=== PATIENT | male | born 1960 | race Caucasian/White ===

== ENCOUNTER 2019-11-25 14:44 | Emergency (ER) | payer OTHER, SELFPAY ==
--- NOTE | ~2019-11-25 | XR_ITS ---
EXAMINATION: XR chest 2V EXAM DATE: 11/25/2019 15:28 INDICATION: Left upper lung diminished sounds. TECHNIQUE: Frontal and lateral projections of the chest obtained and reviewed. There is no prior chris dy for comparison. FINDINGS: Moderate chronic appearing hyperinflation. Metallic BB within the left back subcutaneous f at. The lungs are clear. There are no pleural effusions. The cardiomediastinal silhouette is within normal limits. There is no pneumothorax suspected. Mild to moderate thoracic spondylosis and acrom ioclavicular primary osteoarthritis. IMPRESSION: 1. No acute cardiopulmonary findings. 2. Hyperinflation. Reviewed, dictated and finalized at location A. [facility]
--- NOTE | 2019-11-25 14:50 | ED.URI ---
HPI - URI/Sore Throat General Chief Complaint: Upper Respiratory Infection Stated Complaint: Sore Throat Time Seen by Provider: 11/25/19 14:50 Source: patient and RN notes reviewed History of Present Illness HPI Narrative: Patient is 59-year-old male that presents the urgent care with complaints of body aches, sore throat, fever, congestion, productive yellow cough, wheezing. Patient states that started 9 days ago and he has been using NyQuil, cough drops, Tylenol without much relief. Patient denies any history of pneumonia. No other acute complaints. No acute distress noted. Patient had a plan of care. Related Data Allergies Allergy/AdvReac Type Severity Reaction Status Date / Time No Known Allergies Allergy Verified 11/25/19 15:06 Review of Systems Review of Systems: Narrative: CONSTITUTIONAL: Reports of subjective fever with chills and sweats EYES: Denies visual changes, redness, or discharge. ENT: Reports postnasal drainage, congestion, sore throat CARDIOVASCULAR: Denies chest pain, palpitations, or edema. RESPIRATORY: Reports a productive cough without dyspnea GASTROINTESTINAL: Denies abdominal pain, nausea, vomiting, or diarrhea. GENITOURINARY: Denies dysuria or hematuria. SKIN: Denies rash or itching. MUSCULOSKELETAL: Denies back pain, joint pain; reports of body aches NEUROLOGIC: Denies headache, numbness, or weakness. All other systems reviewed are negative, except as documented in HPI. PMFSH Social History Social History Smoking status: Never smoker Alcohol intake: never Gender identity (if verbalized by the patient): Male Comments At the time of my signature, I reviewed and agree with the nursing past medical, surgical, social, and family history. There is no relevant family history pertinent to the patient complaint. Exam Narrative: Exam Narrative: GENERAL: This is a well-nourished, well-developed patient, in no apparent distress. HEAD: normocephalic, atraumatic. EYES: PERRL. Sclera clear/white. Vision is grossly intact. EARS: External ears normal, auditory canals clear and without drainage, TMs normal without perforation. Hearing grossly intact. NOSE: External nose normal with no obvious nasal discharge, nares without redness, no rhinorrhea. THROAT: Mucous membranes moist, posterior pharynx clear. Moderate postnasal drainage NECK: Neck supple CARDIOVASCULAR: Regular rate and rhythm without murmurs, gallops, or rubs. RESPIRATORY: Crackles and expiratory wheezes noted throughout, notable diminished left upper lobe SKIN: warm, intact with no suspicious lesions or rash, good texture and turgor. NEURO: awake, alert, and oriented to person, place and time. There were no obvious focal neurologic abnormalities. EXTREMITIES: No clubbing, cyanosis, or edema. Course Vital Signs Vital signs: Vital Signs Temperature 98.8 F 11/25/19 14:56 Pulse Rate 108 H 11/25/19 14:56 Respiratory Rate 18 11/25/19 14:56 Blood Pressure 115/75 11/25/19 14:56 Pulse Oximetry 96 11/25/19 14:56 Temperature 98.8 F 11/25/19 14:56 Pulse Rate 108 H 11/25/19 14:56 Respiratory Rate 18 11/25/19 14:56 Blood Pressure 115/75 11/25/19 14:56 Pulse Oximetry 96 11/25/19 14:56 Reviewed MDM - URI/Sore Throat MDM Narrative Medical decision making narrative: Reviewed lab results with the patient. He is aware that strep swab was negative. Educated him on culture and we will call within 72 hours if culture is positive. Aware that flu swab was negative. Reviewed chest x-ray results with the patient. Patient is aware that there is no obvious pneumonia. Based on clinical evaluation and assessment, will treat patient with antibiotic therapy. Advised him to complete antibiotic regimen as prescribed. Use inhaler as needed for shortness of breath or wheezing. Complete steroid regimen as prescribed. If you develop any increase in symptoms associated with persistent shortness of breath, fever, chest pain?go to the [facility]
[2019-11-25 14:56] VITALS: BP 115/75; PULSE 108; RESP 18; TEMP 37.1; O2SAT 96
== END 2019-11-25 15:42 | disposition home or self-care (01) ==
PROVIDERS: Emergency Provider Nurse Practitioner Family
DX: J40 Bronchitis, not specified as acute or chronic (principal)
CPT/HCPCS: 71046; 87081; 87804; 87880; 99213; G0463

== ENCOUNTER 2021-07-26 13:07 | Outpatient (CLI) | payer OTHER, SELFPAY ==
[2021-07-26 13:28] LABS: Hematocrit 41.5 % (42.0-52.0); Hemoglobin 13.9 g/dL (14.0-18.0); Mean Corpuscular HGB Conc 33.5 g/dl (32-36); Mean Corpuscular Hemoglobin 32.4 pg (26-34); Mean Corpuscular Volume 96.7 fl (80-100); Mean Platelet Volume 8.4 fl (7.4-10.4); Platelet Count Result 239 k/mm3 (150-375); Red Blood Count 4.29 M/mm3 (4.6-6.20); Red Cell Distribution Width 12.4 % (11.5-14.5); White Blood Count 5.3 K/mm3 (4.5-10.0)
[2021-07-26 13:39] LABS: Alanine Aminotransferase 22 U/L (4-50); Albumin Level 4.6 g/dL (3.5-5.1); Alkaline Phosphatase 98 U/L (38-126); Anion Gap 5 mmol/L (8-16); Aspartate Amino Transferase 37 U/L (17-59); Bilirubin,Total 0.1 mg/dL (0.2-1.3); Blood Urea Nitrogen 13 mg/dL (9-20); Carbon Dioxide 31 mmol/L (22-30); Chloride 103 mmol/L (98-107); Estimated Glomerular Filt Rate > 60; Glucose 136 mg/dL (65-110); Potassium 4.9 mmol/L (3.4-5.0); Sodium 139 mmol/L (137-145)
[2021-07-29 03:57] LABS: Levetiracetam Keppra 64.9 mcg/mL (12.0-46.0)
== END 2021-07-26 13:08 | disposition home or self-care (01) ==
LOC: ANHLAB 13:09
PROVIDERS: Visit Provider Psychiatry & Neurology Neurology
DX: G40.909 Epilepsy, unspecified, not intractable, without status epilepticus (principal)
CPT/HCPCS: 36415; 80053; 80177; 85027

== ENCOUNTER 2024-03-25 16:17 | Outpatient (CLI) | payer OTHER, SELFPAY ==
[2024-03-25 16:39] LABS: Basophils Percent Auto 0.3 % (0.2-1.2); Eosinophils Percent Auto 0.7 % (0-4.4); Hematocrit 42.6 % (42.0-52.0); Hemoglobin 14.1 g/dL (14.0-18.0); Immature Granulocyte Absolute 0.01 K/mm3 (0.00-0.031); Immature Granulocyte Percent A 0.2 % (0-0.5); Lymphocytes Absolute Auto 1.38 K/mm3 (0.9-3.2); Mean Corpuscular HGB Conc 33.1 g/dl (32-36); Mean Corpuscular Hemoglobin 31.5 pg (26-34); Mean Corpuscular Volume 95.3 fl (80-100); Mean Platelet Volume 8.6 fl (7.4-10.4); Monocytes Absolute Auto 0.4 K/mm3 (0.1-0.6); Monocytes Percent Auto 6.1 % (2.6-8.5); Neutrophils Absolute Auto 3.9 K/mm3 (1.3-6.7); Neutrophils Percent Auto 68.7 % (45.5-73.1); Platelet Count Result 247 k/mm3 (150-375); Red Blood Count 4.47 M/mm3 (4.6-6.20); Red Cell Distribution Width 12.1 % (11.5-14.5); White Blood Count 5.7 K/mm3 (4.5-10.0)
[2024-03-25 16:50] LABS: Anion Gap 5 mmol/L (4-12); Blood Urea Nitrogen 13 mg/dL (9-20); Carbon Dioxide 32 mmol/L (22-30); Chloride 99 mmol/L (98-107); Estimated Glomerular Filt Rate > 60; Glucose 98 mg/dL (65-110); Potassium 4.6 mmol/L (3.4-5.0); Sodium 136 mmol/L (137-145)
== END 2024-03-25 16:18 | disposition home or self-care (01) ==
LOC: ANHLAB 16:18
PROVIDERS: Visit Provider Student in an Organized Health Care Education/Training Program
DX: Z51.81 Encounter for therapeutic drug level monitoring (principal); G40.909 Epilepsy, unspecified, not intractable, without status epilepticus
CPT/HCPCS: 36415; 80048; 80156; 85025

== ENCOUNTER 2024-04-17 15:37 | Outpatient (CLI) | payer OTHER, SELFPAY ==
--- NOTE | ~2024-04-17 | XR_ITS ---
EXAMINATION: XR chest 2V 04/17/2024 16:05 INDICATION: Dyspnea PROCEDURE: 2 view chest COMPARISON: 11/25/2019 FINDINGS: The lungs are clear. The cardiomediastinal silhouette is within normal limits. There are no pleural effusions. There is no pneumothorax suspected. The lungs are hyperinflated which is cons istent with, but not diagnostic of chronic obstructive pulmonary disease. IMPRESSION: 1: NO ACUTE CARDIOPULMONARY DISEASE. Reviewed, dictated and finalized at location B.
[2024-04-17 15:57] LABS: Basophils Percent Auto 0.4 % (0.2-1.2); Eosinophils Percent Auto 0.6 % (0-4.4); Hematocrit 41.5 % (42.0-52.0); Hemoglobin 14.1 g/dL (14.0-18.0); Immature Granulocyte Absolute 0.01 K/mm3 (0.00-0.031); Immature Granulocyte Percent A 0.2 % (0-0.5); Lymphocytes Absolute Auto 1.58 K/mm3 (0.9-3.2); Lymphocytes Percent Auto 30.9 % (18.3-44.2); Mean Corpuscular Volume 94.1 fl (80-100); Mean Platelet Volume 8.4 fl (7.4-10.4); Monocytes Absolute Auto 0.4 K/mm3 (0.1-0.6); Monocytes Percent Auto 7.2 % (2.6-8.5); Neutrophils Absolute Auto 3.1 K/mm3 (1.3-6.7); Neutrophils Percent Auto 60.7 % (45.5-73.1); Platelet Count Result 250 k/mm3 (150-375); Red Blood Count 4.41 M/mm3 (4.6-6.20); Red Cell Distribution Width 12.2 % (11.5-14.5); White Blood Count 5.1 K/mm3 (4.5-10.0)
[2024-04-17 16:18] LABS: Alanine Aminotransferase 23 U/L (6-50); Albumin Level 4.4 g/dL (3.5-5.1); Alkaline Phosphatase 83 U/L (38-126); Anion Gap 6 mmol/L (4-12); Aspartate Amino Transferase 33 U/L (17-59); Bilirubin,Total 0.4 mg/dL (0.2-1.3); Blood Urea Nitrogen 14 mg/dL (9-20); Calcium 9.1 mg/dL (8.4-10.2); Carbon Dioxide 33 mmol/L (22-30); Chloride 97 mmol/L (98-107); Cholesterol 168 mg/dL (0-200); Estimated Glomerular Filt Rate > 60; Glucose 117 mg/dL (65-110); HDL Direct 79 mg/dL; Potassium 4.7 mmol/L (3.4-5.0); Sodium 136 mmol/L (137-145); Triglycerides 54 mg/dL (<150)
[2024-04-17 16:30] LABS: LDL Cholesterol Direct 81 mg/dL
[2024-04-17 16:48] LABS: Prostate Specific Antigen 4.2 ng/mL (< OR = 4.0)
== END 2024-04-17 15:38 | disposition home or self-care (01) ==
LOC: ANHLAB 15:40
PROVIDERS: PCP Nurse Practitioner Family; Referring Provider Nurse Practitioner Family; Visit Provider Student in an Organized Health Care Education/Training Program
DX: R06.09 Other forms of dyspnea (principal); R53.83 Other fatigue; Z13.220 Encounter for screening for lipoid disorders; Z12.5 Encounter for screening for malignant neoplasm of prostate; G40.909 Epilepsy, unspecified, not intractable, without status epilepticus; Z51.81 Encounter for therapeutic drug level monitoring
CPT/HCPCS: 36415; 71046; 80053; 80061; 80156; 84153; 84443; 85025; G0103

== ENCOUNTER 2024-05-01 16:34 | Outpatient (CLI) | payer OTHER, SELFPAY ==
[2024-05-01 18:00] LABS: Hemoglobin A1C 5.7 % (<5.7)
[2024-05-05 13:24] LABS: PSA, Free 0.7 ng/mL; PSA, Total 4.2 ng/mL (< OR = 4.0); Percent Free Prostate Spec Ag 17 % (calc) (>25)
== END 2024-05-01 16:35 | disposition home or self-care (01) ==
PROVIDERS: PCP Nurse Practitioner Family; Visit Provider Nurse Practitioner Family
DX: R97.20 Elevated prostate specific antigen [PSA] (principal); R73.01 Impaired fasting glucose
CPT/HCPCS: 36415; 83036; 84153; 84154

== ENCOUNTER 2024-06-02 10:14 | Outpatient (CLI) | payer OTHER, SELFPAY ==
[2024-06-07 14:34] LABS: Carbamazepine Tegretol 15.6 mcg/mL (4.0-12.0)
== END 2024-06-02 10:15 | disposition home or self-care (01) ==
LOC: ANHLAB 10:15
PROVIDERS: PCP Nurse Practitioner Family; Visit Provider Student in an Organized Health Care Education/Training Program
DX: Z51.81 Encounter for therapeutic drug level monitoring (principal); G40.909 Epilepsy, unspecified, not intractable, without status epilepticus
CPT/HCPCS: 36415; 80156

== ENCOUNTER 2024-06-12 08:30 | Outpatient (CLI) | payer OTHER, SELFPAY ==
--- NOTE | ~2024-06-12 | NM_ITS ---
EXAMINATION: NM stress w perf spect multi DATE: 06/12/2024 10:51 INDICATION: Other forms of dyspnea TECHNIQUE: Rest images were obtained following intravenous administration of 9.3 mCi Tc99m tetrofosmi n (Glowpoint). The patient performed an exercise activity. At peak exercise, 30.0 mCi Tc99m tetrofosmin (Myoview) was administered intravenously, and stress images were obtained in the supine position. Ad ditional repeat post stress imaging was obtained in the prone position. Data was reconstructed into s hort axis and horizontal and vertical long axis SPECT images. Gated SPECT images were also obtained. COMPARISON: None. FINDINGS: There is a mild fixed perfusion defect involving the apical, apical superior, apical lateral, apical septal, mid inferoseptal and mid anteroseptal segments consistent with infarct. Small moderate severi ty reversible perfusion defect consistent with ischemia at the mid anterior segment and mild reversib le ischemia at the apical inferior and apical lateral segments. There is normal left ventricular vianey mber size, wall motion and ejection fraction. Left ventricular ejection fraction measures 65%. IMPRESSION: 1. Mild nonreversible infarct involving primarily the left anterior descending coronary artery vascul ar distribution as detailed above. 2. Small regions of reversible ischemia, moderate severity at the mid anterior segment and mild at th e apical inferior and apical lateral segments. 2. Left ventricular ejection fraction measuring 65%. Reviewed, dictated and finalized at location A. IMPRESSION: 1. Mild nonreversible infarct involving primarily the left anterior descending coronary artery vascular distribution as detailed above. 2. Small regions of reversible ischemia, moderate severity at the mid anterior segment and mild at the apical inferior and apical lateral segments. 2. Left ventricular ejection fraction measuring 65%.
--- NOTE | 2024-06-12 08:34 | EST_ITS ---
Patient Info Name: Timmy Nguyen Age: 63 years : 1960 Gender: Male Ht: 65 in Wt: 158 lbs BSA: 1.83 m2 Exam Date: 06/12/2024 9:42 AM Exam Location: [facility] Patient Status: Outpatient Admit Date: 06/12/2024 Staff Ordering Physician: Yeni Thompson APRN Attending Provider: Yeni Thompson APRN Exercise Technologist: Pita Parikh, DAVID Exercise Physician: Artie Mcclellan DO Exam Type: CA stress test treadmill w NM Study Info Indications R06.00 - Dyspnea, unspecified A pharmacological stress test was performed. Summary 1. 1. Inconclusive Anoop exercise stress test for ischemic ST changes by ECG criteria due to baseline LBBB. 2. 2. Reduced functional capacity, achieving 7 METs of workload. 3. 3. Baseline hypertension with hypertensive response to exercise. 4. 4. Appropriate HR response to exercise. 5. 5. Appropriate HR recovery at 1 minute post exercise. 6. 6. Nuclear scan to follow and will be reported separately. Please correlate with it. 7. 7. Patient informed of the above results. Protocol: Anoop Stress ECG Details Stage: REST Duration (min): 2 min : 2 sec Speed (mph): 0.0 Grade (%): 0 HR (bpm): 77 SBP (mmHg): 172 DBP (mmHg): 91 METS: --- Stage: REST Duration (min): 8 min : 15 sec Speed (mph): 0.0 Grade (%): 0 HR (bpm): 79 SBP (mmHg): 168 DBP (mmHg): 93 METS: --- Stage: REST Duration (min): 15 min : 33 sec Speed (mph): 0.0 Grade (%): 0 HR (bpm): 81 SBP (mmHg): 168 DBP (mmHg): 93 METS: --- Stage: STAGE 1 Duration (min): 1 min : 0 sec Speed (mph): 1.7 Grade (%): 10 HR (bpm): 98 SBP (mmHg): 168 DBP (mmHg): 93 METS: --- Stage: STAGE 1 Duration (min): 2 min : 0 sec Speed (mph): 1.7 Grade (%): 10 HR (bpm): 102 SBP (mmHg): 168 DBP (mmHg): 93 METS: --- Stage: STAGE 1 Duration (min): 3 min : 0 sec Speed (mph): 1.7 Grade (%): 10 HR (bpm): 106 SBP (mmHg): 196 DBP (mmHg): 109 METS: --- Stage: STAGE 2 Duration (min): 1 min : 0 sec Speed (mph): 2.5 Grade (%): 12 HR (bpm): 116 SBP (mmHg): 196 DBP (mmHg): 109 METS: --- Stage: STAGE 2 Duration (min): 2 min : 0 sec Speed (mph): 2.5 Grade (%): 12 HR (bpm): 123 SBP (mmHg): 226 DBP (mmHg): 90 METS: --- Stage: STAGE 2 Duration (min): 3 min : 0 sec Speed (mph): 2.5 Grade (%): 12 HR (bpm): 132 SBP (mmHg): 226 DBP (mmHg): 90 METS: --- Stage: RECOVERY Duration (min): 0 min : 59 sec Speed (mph): 0.0 Grade (%): 0 HR (bpm): 132 SBP (mmHg): 252 DBP (mmHg): 103 METS: --- Stage: RECOVERY Duration (min): 1 min : 59 sec Speed (mph): 0.0 Grade (%): 0 HR (bpm): 94 SBP (mmHg): 252 DBP (mmHg): 103 METS: --- Stage: RECOVERY Duration (min): 2 min : 59 sec Speed (mph): 0.0 Grade (%): 0 HR (bpm): 66 SBP (mmHg): 252 DBP (mmHg): 103 METS: --- Stage: RECOVERY Duration (min): 3 min : 59 sec Speed (mph): 0.0 Grade
== END 2024-06-12 08:31 | disposition home or self-care (01) ==
LOC: ANHCARD 08:31
PROVIDERS: PCP Nurse Practitioner Family; Visit Provider Nurse Practitioner Family
DX: R06.09 Other forms of dyspnea (principal)
CPT/HCPCS: 78452; 93017; A9502

== ENCOUNTER 2025-01-22 07:51 | Outpatient (CLI) | payer MEDICARE, MEDICAID, SELFPAY ==
--- OUTSIDE RECORDS SUMMARY | 2025-01-22 07:57 | XMS_ITS | Clinical Summary ---
Author Organization [facility] Address [address] [place] [id number] Care Team Providers Care Medical Payment Poster Name Role Phone Unavailable Primary Care Provider Unavailabl e Social History Tobacco Use Types Packs/Day Years Used Date Smoking Tobacco: Never Assessed Sex and Gender Information Value Date Recorded Sex Assigned at Not on file Legal Sex Male 9:18 PM CDT Gender Identity Not on file Sexual Orientation Not on file Plan of Treatment Health Maintenance Due Date Last Done Comments Colorectal Cancer Screening Colonoscopy (10 Years) 1960 Hepatitis C 1977 DTaP, Tdap and Td Vaccines ( 1 - Tdap) 1978 Zoster Vaccines (1 of 2) 2009 COVID-19 Vaccine ( - 2023-2 5 season) 2024 Pneumococcal Vaccine: 50+ Ye ars (1 of 1 - PCV) 2024 RSV Immunization or 60+ Years (1 - 1-dose 75+ series) 2034 Meningococcal B Vaccine Aged Out No l onger eligible based on patient's age to complete this topic Meningococcal Vaccine Aged Out No glenn anjel eligible based on patient's age to complete this topic Pneumococcal Vaccine: Pediat rics (0 to 5 Years) and At-Risk Patients (6 to 49 Years) Aged Out No longer eligible b ased on patient's age to complete this topic RSV Immunizations Under 20 Months Aged Out No longer eligible based on patient's age to complete this topic
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
--- OUTSIDE RECORDS SUMMARY | 2025-01-22 07:57 | XMS_ITS | Encounter Summary ---
Author Organization [facility] Healthcare Address [address] [place] [address] Care Team Providers Care Clinical Quality Analyst Name Role Phone Yeni Thompson NP Primary Care Provider [phone] Encounter Details Date Type Department Care Team (Late st Contact Info) Description 12/02/2024 Results Follow-Up [facility] Cardiology [address] [place] [address] Abdirahman Forbes MD [address] [place] [phone] Social History Tobacco Use Types Packs/Day Years Used Date Smoking Tobacco: Former Smokeless Tobacco: Never AUDIT-C Answer Date Recorded Q1: How often [...] on file Legal Sex Male 6:01 AM WIRELESS NETWORK ENGINEER Gender Identity Not on file Sexual Orientation Not on file documented as of this encounter Plan of Treatment Not on file documented as of this encounter Visit Diagnoses Not on filedocumented in this encounter Care Teams Clinical Quality Analyst Relationship Specialty Start Date End Date Yeni Thompson NP [address] [place] [address] PCP - General Family Practice 08/11/24 documented as of this encounter
--- OUTSIDE RECORDS SUMMARY | 2025-01-22 07:57 | XMS_ITS | Referral Summary ---
Author Organization [facility] Address [address] [place] [address] Care Team Providers Care Sheet Metal Production Worker Name Role Phone Yeni Thompson NP Primary Care Provider [phone] Encounters Date Type Department Care Team Description 12/02/2024 Results Follow-Up [facility] Cardiology [address] [place] [address] [place] [phone] Rea Forbes MD 12/01/2024 3:00 PM PATTERNMAKER WOOD Ancillary Procedure [facility] Cardiology [address] [place] [address] [place] [phone] ORTIZ (dyspnea on exertion) 11/18/2024 Telephone [facility] Cardiology [address] [place] [address] [place] [phone] Rea Forbes MD 11/10/2024 12:30 PM PATTERNMAKER WOOD Office Visit [facility] Cardiology [address] [place] [address] [place] [phone] Rea Forbes MD ORTIZ (dyspnea on exertion) (Primary Dx) 10/30/2024 5:40 PM PATTERNMAKER WOOD Lab [facility] [address] [place] [phone] Elevated PSA 10/30/2024 2:20 PM PATTERNMAKER WOOD Office Visit [facility] Advanced Medicine ([facility]) - Health system Urology [address] [place] [address] Advanced Medicine 11th [place] [address] [place] [phone] Magen Daniel MD Elevated PSA (Primary Dx) from Last 3 Months Allergies No known active allergies Medications carBAMazepine [...] Date Cardiovascular stress test abnormal 08/11/2024 11/10/2024 Social History Tobacco Use Types Packs/Day Years [...] on file Legal Sex Male 6:01 AM PATTERNMAKER WOOD Gender Identity Not on file Sexual Orientation Not on file Last Filed Vital Signs Vital Sign Reading Time Taken Comments Blood Pressure 130/80 11/10/2024 12:19 PM PATTERNMAKER WOOD Pulse 72 11/10/2024 12:19 PM PATTERNMAKER WOOD Temperature 36.7 C (98.1 F) 09/17/2024 6:45 AM PATTERNMAKER WOOD Respiratory Rate 16 09/17/2024 6:45 AM PATTERNMAKER WOOD Oxygen Saturation 92% 11/10/2024 12:19 PM PATTERNMAKER WOOD Inhaled Oxygen Concentration - - Weight 59.9 kg (132 lb) 11/10/2024 12:19 PM PATTERNMAKER WOOD Height 165.1 cm (5' 5 ) 11/10/2024 12:19 PM PATTERNMAKER WOOD Body Mass Index 21.97 11/10/2024 12:19 PM PATTERNMAKER WOOD Plan of Treatment Not on file Medical Devices Implanted Type Area Funeral Limousine Driver Device Identifier Shelf Expiration Date Model / Serial / Lot [facility] [employer] [facility] Device Closure Vascade Od5 Fr Femoral Artery [id number] - [id number] Implanted:Qty: 1 on 09/17/2024 by Rea Forbes MD at [facility] [employer] [facility] 05/05/2026 [id number] / / [id number] Procedures Procedure Name Priority Date/Time Associated Diagnosis Comments TRANSTHORACIC ECHO (TTE) COMPLETE W DOPPLER/CF WO CONTRAST Routine 12/01/2024 3:48 PM PATTERNMAKER WOOD ORTIZ (dyspnea on exertion) PSA SCREEN Routine 10/30/2024 3:24 PM PATTERNMAKER WOOD Elevated PSA MEASURE POST VOID RESIDUAL Routine 10/30/2024 3:01 PM PATTERNMAKER WOOD Elevated PSA from Last 3 Months Results * TRANSTHORACIC ECHO (TTE) COMPLETE W DOPPLER/CF WO CONTRAST (12/01/2024 3:48 PM PATTERNMAKER WOOD) LV EF 50 % CONS SCIMAGE Anatomical Region Laterality Modality Ultrasound 12/01/2024 2:42 PM PATTERNMAKER WOOD Narrative 12/01/2024 4:53 PM PATTERNMAKER WOOD [facility] Cardiology [address], [place] [address] [address] [facility] [address], [place] [address] P:[phone] P:[phone] Echocardiographic Report Patient Name: TIMMY NGUYEN D : 1960 Study Date: 12/01/2024 2:42:33 PM Gender: M Tech: Location: [place] Ref Provider: REA FORBES Height(Cm): 165 BSA: 1.66 [...] mmHg Estimated EF 50 % AV Peak Justo 1.54 m/s [ 1.00 - 1.70 ] [...] FINDINGS: Interpretation Site: Exam was interpreted at [facility]. Left Ventricle: Normal left ventricular size. Normal [...] regurgitation. Electronically Signed By: Jose Pollack MD, [facility] 12/01/2024 4:52:26 PM PATTERNMAKER WOOD Procedure Note Jose Pollack MD - 12/01/2024 [facility] Cardiology [address] [facility] [address], [place] [address] [address] [facility] [id number], [place] [address] P:[phone] P:[phone] Echocardiographic Report Patient Name: TIMMY NGUYENAntony : 1960 Study Date: 12/01/2024 2:42:33 PM Gender: M Tech: Location: [facility] Provider: REA FORBES Height(Cm): 165 BSA: 1.66 [...] FINDINGS: Interpretation Site: Exam was interpreted at [facility]. Left Ventricle: Normal left ventricular size. Normal [...] regurgitation. Electronically Signed By: Jose Pollack MD, [facility] 12/01/2024 4:52:26 PM PATTERNMAKER WOOD us Rea Forbes MD CV ECHO PROCEDURES F inal Result * PSA screen (10/30/2024 3:24 PM PATTERNMAKER WOOD) PSA-Total 2.67 <=5.40 ng/mL Comment: Interpretive Data AGE SEX REFERENCE INTERVAL 0 minutes-150 years Female None 0 minutes-49 years Male None 50-59 years Male 0-3.90 60-69 years Male 0-5.40 70-79 years Male 0-6.20 80-150 years Male 0-6.20 The Glenna PSA Total assay procedure was used. Results from different manufacturers or methods may not be comparable. Serial testing should be performed using the same method. Current interpretive data last revised 22. Blood 10/30/2024 3:24 PM PATTERNMAKER WOOD 10/30/2024 3:38 PM PATTERNMAKER WOOD us Magen Daniel MD LAB BLOOD ORDERABLE S Final Result [facility] [address] [facility] [address] [place] [address] * Measure post void residual (10/30/2024 3:01 PM PATTERNMAKER WOOD) Eduardo Lashajoel Gerald - 10/30/2024 3:01 PM PATTERNMAKER WOOD Measurement of Post-voiding residual urine and/or bladder capacity by ultrasound, non-imaging. PVR= 41 ml Gerald Henley us Magen Daniel MD NURSING ASSESSMENTS Final Result from Last 3 Months Insurance [facility] MEDICARE Advance Directives For more information, please contact: [phone] * Full Code (Latest Code Status on File) Date Activated Date Inactivated Comments 09/17/2024 9:35 AM 09/17/2024 3:28 PM Care Teams Sheet Metal Production Worker Relationship Specialty Start Date End Date Yeni Thompson NP [address] [place] [address] PCP - General Family Practice 08/11/24
[2025-01-22 09:00] VITALS: PULSE 90; O2SAT 93
[2025-01-22 09:03] VITALS: PULSE 101; O2SAT 87
[2025-01-22 09:04] VITALS: O2SAT 87
[2025-01-22 09:05] VITALS: PULSE 100; O2SAT 92
[2025-01-22 09:15] VITALS: PULSE 80; O2SAT 94
--- NOTE | 2025-01-22 10:27 | HOMEO2EVAL ---
Evaluation was performed at [facility] Home Oxygen Evaluation RC: Home Oxygen (O2) Evaluation Start: 01/22/25 10:25 Freq: Status: Active Protocol: RPE Activity Type Activity Date Activity User E-sign Co-sign Detail Recorded Client Recorded Date Recorded By Document 01/22/25 09:00 CLIFF [email or web address] 01/22/25 10:27 CLIFF Document 01/22/25 09:03 CLIFF [email or web address] 01/22/25 10:27 CLIFF Document 01/22/25 09:04 CLIFF [email or web address] 01/22/25 10:27 CLIFF Document 01/22/25 09:05 CLIFF [email or web address] 01/22/25 10:27 CLIFF Document 01/22/25 09:15 CLIFF [email or web address] 01/22/25 10:27 CLIFF 01/22/25 01/22/25 01/22/25 09:00 09:03 09:04 Home O2 Evaluation [Oxygen] -Test Phase Resting Exercise Exercise -Oxygen Delivery Room Air Room Air Nasal Cannula -Oxygen Flow Rate (L/min) 1 [Pulse Oximetry] -Pulse Oximetry (90-100 %) 93 87 L 87 L [Pulse Rate] -Pulse Rate (60-100 beats/min) 90 101 H [Exercise] -Ambulation Distance (feet) -Ambulation Distance (meters) [Comments] -Home Oxygen Evaluation Comments [Charges] -Evaluation Charges O2 Evaluation by Pulmonary 01/22/25 01/22/25 09:05 09:15 Home O2 Evaluation [Oxygen] -Test Phase Exercise Resting -Oxygen Delivery Nasal Cannula Room Air -Oxygen Flow Rate (L/min) 2 [Pulse Oximetry] -Pulse Oximetry (90-100 %) 92 94 [Pulse Rate] -Pulse Rate (60-100 beats/min) 100 80 [Exercise] -Ambulation Distance (feet) 700 -Ambulation Distance (meters) 213.34 [Comments] -Home Oxygen Evaluation Comments Pt requires 2 liters home O2 with activity. [Charges] -Evaluation Charges
--- NOTE | 2025-01-22 13:04 | WPDPFTINT ---
PFT Procedure Performed PFT Procedure Performed Spirometry with Pre/Post Bronchodilator Plethysmography (Lung Vol) Diffusing Cap (DLCO) Flow Vol Loop PFT Interpretation This is a pulmonary function test with pre and post-bronchodilator spirometry, plethysmography and diffusing capacity. The test was performed and results interpreted in accordance with the 2019 and 2005 ATS/ERS Task Force guidelines respectively using the Global Lung Function Initiative-2012 reference equations. Patient demonstrated good effort and cooperation. Reproducibility criteria were met. The quality of the pre bronchodilator spirometry maneuver was Grade A and post bronchodilator spirometry maneuver was Grade A. Findings: Spirometry: There is decreased maximal expiratory airflow at all lung volumes with concave expiratory flow tracing. The contour the inspiratory flow tracing is normal. The pre bronchodilator FVC is 1.94 L, 52% predicted. The pre bronchodilator FEV1 is 0.79 L, 28% predicted. The pre bronchodilator FEV1: FVC ratio is 41%. The post bronchodilator FVC is 2.29 L, representing an 18% increase. The post bronchodilator FEV1 is 0.89 L, representing a 12% increase. The post bronchodilator FEV1: FVC ratio is 39%. Plethysmography: The total lung capacity is 9.25 L, 154% predicted. The functional residual capacity is 8.00 L, 259% predicted. The residual volume is 6.30 L, 304% predicted. The residual volume: Total lung capacity ratio 68%. Diffusing capacity: The diffusing capacity unadjusted for hemoglobin and carboxyhemoglobin is 11.3, 45% predicted. The diffusing capacity adjusted for alveolar volume is 2.81, 64% predicted. Impression: There is a very severe obstructive abnormality. There is significant improvement after inhaling a single dose of albuterol. The increase in residual volume to total lung volume ratio is consistent with hyperinflation from an obstructive abnormality. The diffusing capacity unadjusted for hemoglobin and carboxyhemoglobin is moderately decreased and remains mildly decreased when adjusted for alveolar volume. There are no prior studies for comparison
== END 2025-01-22 07:52 | disposition home or self-care (01) ==
PROVIDERS: Visit Provider Physician Assistant
DX: J44.9 Chronic obstructive pulmonary disease, unspecified (principal)
CPT/HCPCS: 94060; 94618; 94726; 94729

== ENCOUNTER 2025-01-22 07:56 | Outpatient (CLI) | payer MEDICARE, MEDICAID, SELFPAY ==
--- NOTE | ~2025-01-22 | CT_ITS ---
CT Scan of the Chest without Contrast: Clinical Indication: Dyspnea Technique: Contiguous sections were acquired throughout the chest without intravenous contrast. Dose reduction technique was used on this scan by utilizing automated exposure control and iterative recon struction technique. The dose-length product (DLP) was 160.14 mGy-cm. Findings: There is no evidence of any significant mediastinal, hilar or axillary lymphadenopathy. The mediastin al soft tissues appear normal. There is no evidence of pleural or pericardial effusion. Mild to moderate emphysema. There is mild chronic postinflammatory change or scarring in the right mi ddle lobe and right upper lobe. Images through the upper abdomen reveal no abnormalities. Chronic L2 compression fracture noted. Impression: Mild to moderate emphysema. Post-inflammatory changes or scarring, as above. Reviewed, dictated and finalized at [facility]. Impression: Mild to moderate emphysema. Post-inflammatory changes or scarring, as above.
== END 2025-01-22 07:57 | disposition home or self-care (01) ==
LOC: ANHIMG 07:56
PROVIDERS: Visit Provider Physician Assistant
DX: R06.09 Other forms of dyspnea (principal); J43.9 Emphysema, unspecified; Z57.39 Occupational exposure to other air contaminants
CPT/HCPCS: 71250

== ENCOUNTER 2025-02-09 08:24 | Outpatient (CLI) | payer MEDICARE, MEDICAID, SELFPAY ==
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
--- OUTSIDE RECORDS SUMMARY | 2025-02-09 08:40 | XMS_ITS | Referral Summary ---
Author Organization [facility] Address [address] [place] [address] Care Team Providers Care Manager Medical Writing Name Role Phone Yeni Thompson NP Primary Care Provider [phone] Encounters Date Type Department Care Team Description 02/05/2025 1:40 PM CDT Office Visit [facility] Urology [address] [place] [address] 11th [place] [address] [place] [address] Aria Tadeo PA Urgency of urination (Primary Dx); Urinary frequency; Benign prostatic hyperplasia with post-void dribbling [N40.1, N39.43] 12/02/2024 Results Follow-Up [facility] Cardiology [address] [place] [address] [place] [phone] Rea Forbes MD 12/01/2024 3:00 PM SHUTTLE FIXER Ancillary Procedure [facility] Cardiology [address] [place] [phone] ORTIZ (dyspnea on exertion) 11/18/2024 Telephone [facility] Cardiology [address] [place] [phone] Rea Forbes MD from Last 3 Months Allergies No known [...] or urgency) 30 tablet 3 5 02/06/20 25 Discontinu ed(Alterna te therapy) Active Problems Problem [...] on file Legal Sex Male 6:01 AM SHUTTLE FIXER Gender Identity Not on file Sexual Orientation Not on file Last Filed Vital Signs Vital Sign Reading Time Taken Comments Blood Pressure 130/80 11/10/2024 12:19 PM SHUTTLE FIXER Pulse 72 11/10/2024 12:19 PM SHUTTLE FIXER Temperature 36.7 C (98.1 F) 09/17/2024 6:45 AM SHUTTLE FIXER Respiratory Rate 16 09/17/2024 6:45 AM SHUTTLE FIXER Oxygen Saturation 92% 11/10/2024 12:19 PM SHUTTLE FIXER Inhaled Oxygen Concentration - - Weight 59.9 kg (132 lb) 11/10/2024 12:19 PM SHUTTLE FIXER Height 165.1 cm (5' 5 ) 11/10/2024 12:19 PM SHUTTLE FIXER Body Mass Index 21.97 11/10/2024 12:19 PM SHUTTLE FIXER Plan of Treatment Not on file Medical Devices Implanted Type Area Requirements Engineer Device Identifier Shelf Expiration Date Model / Serial / Lot Clarient [facility] Device Closure Vascade Od5 Fr Femoral Artery [id number] - [id number] Implanted:Qty: 1 on 09/17/2024 by Rea Forbes MD at [facility] [employer] [facility] 05/05/2026 [id number] / / [id number] Procedures Procedure Name Priority Date/Time Associated Diagnosis Comments POCT URINALYSIS DIPSTICK Routine 02/05/2025 2:35 PM CDT Urgency of urination Urinary frequency MEASURE POST VOID RESIDUAL Routine 02/05/2025 2:30 PM CDT Urgency of urination Urinary frequency TRANSTHORACIC ECHO (TTE) COMPLETE W DOPPLER/CF WO CONTRAST Routine 12/01/2024 3:48 PM SHUTTLE FIXER ORTIZ (dyspnea on exertion) PSA SCREEN Routine 10/30/2024 3:24 PM SHUTTLE FIXER Elevated PSA from Last 3 Months or [...] residual (02/05/2025 2:30 PM CDT) Narrative Anahi Vanessa, SUMEET - 02/05/2025 2:30 PM CDT Measurement of Post Void Residual urine and/or bladder capacity PVR = 24 ml Aria [facility]UMONT NURSING ASSESSMENTS F inal Result * TRANSTHORACIC ECHO (TTE) COMPLETE W DOPPLER/CF WO CONTRAST (12/01/2024 3:48 PM SHUTTLE FIXER) LV EF 50 % CONS SCIMAGE Anatomical Region Laterality Modality Ultrasound 12/01/2024 2:42 PM SHUTTLE FIXER Narrative 12/01/2024 4:53 PM SHUTTLE FIXER [facility] Medical Group Cardiology [address] [facility] [address] [address] [address] [facility] [address], [place] [address] P:[phone] P:[phone] Echocardiographic Report Patient Name: TIMMY NGUYEN D : 1960 Study Date: 12/01/2024 2:42:33 PM Gender: M Tech: Location: [place] Ref Provider: REA FORBES Height(Cm): 165 BSA: [...] FINDINGS: Interpretation Site: Exam was interpreted at [facility]. Left Ventricle: Normal left ventricular size. Normal [...] regurgitation. Electronically Signed By: Jose Pollack MD, [facility] 12/01/2024 4:52:26 PM SHUTTLE FIXER Procedure Note Jose Pollack MD - 12/01/2024 [facility] Medical Group Cardiology [address], [place] [address] [address] [facility] [address], [place] [address] P:[phone] P:[phone] Echocardiographic Report Patient Name: TIMMY NGUYEN D : 1960 Study Date: 12/01/2024 2:42:33 PM Gender: M Tech: Location: [facility] Provider: REA FORBES Height(Cm): 165 BSA: [...] FINDINGS: Interpretation Site: Exam was interpreted at [facility]. Left Ventricle: Normal left ventricular size. Normal [...] regurgitation. Electronically Signed By: Jose Pollack MD, [facility] 12/01/2024 4:52:26 PM SHUTTLE FIXER Rea Forbes MD CV ECHO PROCEDURES F inal Result * PSA screen (10/30/2024 3:24 PM SHUTTLE FIXER) PSA-Total 2.67 <=5.40 ng/mL Comment: Interpretive Data [...] last revised 22. Blood 10/30/2024 3:24 PM SHUTTLE FIXER 10/30/2024 3:38 PM SHUTTLE FIXER Magen Daniel MD LAB BLOOD ORDERABLE S Final Result [facility] Department [place] [address] from Last 3 Months or Most Recently Relevant to Health Maintenance Insurance MEDICARE IDPA [facility] MEDICARE Advance Directives For more information, please contact: [phone] * Full Code (Latest Code Status on File) Date Activated Date Inactivated Comments 09/17/2024 9:35 AM 09/17/2024 3:28 PM Care Teams Manager Medical Writing Relationship Specialty Start Date End Date Yeni Thompson NP [address] [place] [address] PCP - General Family Practice 08/11/24
--- OUTSIDE RECORDS SUMMARY | 2025-02-09 08:40 | XMS_ITS | Clinical Summary ---
Author Organization [facility] Address [address] [place] [id number] Care Team Providers Care Cinder Crusher Operator Name Role Phone Unavailable Primary Care Provider [...] Td Vaccines ( 1 - Tdap) 1978 Pneumococcal Vaccine: 50+ Ye ars (1 of 1 - PCV) 2009 Zoster Vaccines (1 of 2) 2009 COVID-19 Vaccine ( - 2023-2 5 season) 2024 RSV Immunization or 60+ Years (1 [...]
--- NOTE | 2025-03-05 13:54 | WPDSLEEPSTUD ---
Sleep Study Date of Study: 02/09/25 Ordering Provider: ROSARIO Veloz Interpreting Physician: Key Bobo DO Sleep Study Type: Polysomnogram Height: 1.65 m Weight: 62.596 kg Body Mass Index: 22.9 Neck Circumference (inches): 15 Fairchance: 1 Reason for Sleep Study Daytime hypersomnia Sleep History The patient is a 64-year-old male that had a sleep study ordered by the Pulmonary group for evaluation sleep apnea. The patient denies awakening from sleep short of breath. He denies awakening at night with heartburn, belching or cough. He denies snoring. He rarely has trouble sleeping when he has a cold. He denies waking up gasping for air throughout the night. He denies having breathing problems at night observed by himself or others. He denies sweating excessively at night. He denies having heart palpitations or irregular heartbeats during the night. He occasionally falls asleep during the day but never while driving. He denies sleep paralysis, cataplexy and hypnagogic/ hypnopompic hallucinations. He denies having trouble at school or work due to sleepiness. He denies feeling afraid of going to sleep. He denies having nightmares. He denies remembering his dreams. He denies having thoughts racing through his mind. He denies feeling sad, depressed or anxious. He denies having muscular tension. He denies noticing parts of his body jerk. He denies kicking during the night. He denies having crawling and aching feelings in his legs and denies having leg pain during the night. Denies grinding his teeth during sleep and denies awakening with morning jaw pain. He denies being bothered by pain during the day and denies being awakened by pain during the night. He denies waking up feeling stiff in the morning. He denies waking up with sore or achy muscles. He denies waking up with pain in the neck, spine and other joints. He goes to bed at midnight on both weekdays and weekends. He is able to fall asleep relatively quickly. He does not typically wake up throughout the night. He wakes up at 10:00 a.m. on both weekdays and weekends. He typically gets 8-10 hours of sleep per night. He does not stay in bed after waking up in the morning. Denies consuming any caffeinated beverages within 2 hours of bedtime. He denies engaging in physical exercise before bedtime. He he denies reading before falling asleep. He will watch television before falling asleep. He denies taking naps in afternoon or the evening. He denies tobacco use. He rarely consumes alcohol. He smokes marijuana multiple times per day. PENDING SALE TO [facility] Family History Family History Father Diabetes mellitus Social History Social History Smoking status: Never smoker Alcohol intake: current Alcohol use details: Beer (rarely) Substance use: current Substance use type: marijuana Do You Feel Safe in your Home?: Yes Lack of Transportation: No Lack of Food: Never True Current Housing: I Have Housing Concerned About Future Housing: No Difficulty Paying Gas/Electric Bills: No Difficulty Paying for Meds: No Currently Unemployed: No Education: Grade School Difficulty w/ Childcare or Family Care: No Gender identity (if verbalized by the patient): Male Medications Home Medications ?Medication ?Instructions ?Recorded ?Confirmed ?Type aspirin 81 mg tablet,delayed 81 mg PO DAILY 06/13/24 02/03/25 History release albuterol sulfate 90 mcg/actuation 1 - 2 puff inhalation Q4-6H PRN 12/29/24 02/03/25 Rx aerosol inhaler shortness of breath or wheezing #8.5 grams tamsulosin 0.4 mg capsule 0.4 mg PO DAILY 12/29/24 02/03/25 History umeclidinium 62.5 mcg-vilanterol 1 inh inhalation Q24H #60 ea 01/22/25 02/03/25 Rx 25 mcg/actuation powdr for inhalation (Anoro Ellipta) eszopiclone 2 mg tablet (Lunesta) 2 mg PO ONCE #1 tablet 01/23/25 02/03/25 Rx azelastine 137 mcg (0.1 %) nasal 1 spray intranasal Q12H #30 mL 02/03/25 02/03/25 Rx spray carbamazepine 200 mg tablet See Rx Instructions .Route 02/11/25 02/11/25 Rx .COMPLEX #240 tabs levetiracetam 1,000 mg tablet See Rx Instructions .Route 02/11/25 02/11/25 Rx .COMPLEX #120 tabs nortriptyline 75 mg capsule See Rx Instructions .Route 02/11/25 02/11/25 Rx .COMPLEX #30 caps Sleep Procedure A full night polysomnogram using the [place] [employer] multi-channel system recorded the standard physiologic parameters including EEG, EOG, submentalis EMG, anterior tibialis EMG, EKG, body position, nasal and oral airflow using nasal pressure sensor and thermistor.? Respiratory parameters of chest and abdominal movements were recorded with Respiratory Inductance Plethysmography belts. Oxygen saturation was recorded by pulse oximetry. Video monitoring was also performed. Sleep stages, periodic limb movements, and EEG arousals were scored in 30 second epochs according to the criteria of the AASM Scoring Manual. The Apnea-Hypopnea Index was calculated using [facility] guidelines for definition of hypopnea with 4% O2 desaturations while scoring respiratory events. Sleep Architecture The total recording time was 451.9 minutes.? The total sleep time was 235.0 minutes. Sleep latency was 89.5 minutes. REM latency was 144.0 minutes. Sleep efficiency was 52.0%. The patient had 41 awakenings for an awakening index of 10.5. Wake after sleep onset time was 127.0 minutes. The patient spent 46.5 minutes, 19.8% of total sleep time in Stage N1. The patient spent 161.5 minutes, 68.7% in Stage N2. The patient spent 0.0 minutes, 0.0% in Stage N3. The patient spent 27.0 minutes, 11.5% in Stage REM sleep. Respiratory Analysis The patient had 5 hypopnea and 1 obstructive apnea for an overall Apnea Hypopnea Index of 1.5. The REM Apnea Hypopnea Index was 13.3. The NREM Apnea Hypopnea Index was 1.7. The patient had a Central Apnea Hypopnea Index of 0. There was no evidence of Frantz-Aquino Respirations. Arousals There were 95 total arousals for an arousal index of 24.3. There were 36 spontaneous arousals for an index of 9.2. There were 6 arousals due to respiratory events for an index of 1.5. There were 36 arousals due to periodic limb movements for an index of 9.2.? There were 19 arousals due to isolated limb movements for an index of 4.9. Periodic Limb Movements The patient had 54 isolated limb movements with an index of 13.8. The patient had 164 periodic limb movements with an index of 41.9, which is elevated (normal < 15). Patient had a total of 218 limb movements with a total limb movement index of 55.7. Oximetry Data The patient had an average oxygen saturation of 89.5% in sleep with a minimum oxygen saturation of 84.0% and a maximum oxygen saturation of 93.0%. The patient had 5 oxygen desaturations that were 4% or greater resulting in an Oxygen Desaturation Index of 1.3.? The patient spent 46.2 minutes, 10.4% of total sleep time with an oxygen saturation below 88%. Snoring Profile Snoring was not present throughout the study. Cardiac Profile The EKG showed normal sinus rhythm.?No arrhythmias or premature beats were seen. The patient had an average pulse rate of 65.6 bpm with a minimum pulse of rate of 58.0 bpm and a maximum pulse rate of 96.0 bpm.? EEG Profile No signs of seizure activity seen. Alpha intrusion was present. Assessment and Plan Assessment and Plan (1) PLMD (periodic limb movement disorder): Code(s): G47.61 - Periodic limb movement disorder Status: Acute Assessment and Plan: The patient had an overall AHI 1.5 with desaturation to 84%. This is not consistent with sleep disordered breathing. The patient had a significant number of limb movements during the study with the majority being periodic in nature. Over 20% of the periodic limb movements caused arousals in the patient's sleep. The patient's sleep history does not suggest Restless Leg Syndrome. I recommend that the patient have a serum ferritin drawn for evaluation of iron deficiency anemia. If the patient has a serum ferritin less than 75 ng/mL, I recommend starting a daily iron supplement and a Vitamin C supplement for better absorption. If the serum ferritin is greater than 75 ng/mL, I recommend starting a dopamine agonist and titrating the dose until symptoms resolve. There are nonpharmacological methods to treat limb movements including daily exercise, stretching calf muscles before bed, avoiding excessive amounts of caffeine and alcohol, vitamin B supplementation, magnesium lotion massaged into legs before bed, and use of a weighted blanket. Alpha intrusion was present throughout the study. Alpha intrusion, also known as alpha-delta sleep, is an EEG finding where alpha waves are present during NREM sleep. Alpha waves are typically present in wake. While alpha intrusion can be seen in a small subset of healthy individuals, it is often found in patients with depression, fibromyalgia, chronic pain and other sleep disorders. Clinically, alpha intrusion presents as non-restorative sleep. Treatment of alpha intrusion is directed towards the underlying cause. (2) Nocturnal hypoxemia: Code(s): G47.34 - Idiopathic sleep related nonobstructive alveolar hypoventilation Status: Acute Assessment and Plan: The patient spent 46.2 minutes, 10.4% of total sleep time with an oxygen saturation below 88%. The patient was not started on supplemental oxygen during this study. He is being followed by pulmonology and is getting testing done for evaluation of lung disease. I recommend that the patient have nocturnal oximetry done to see if he qualifies for supplemental oxygen at bedtime. Data The data obtained during this sleep study is adequate for interpretation. Certification This sleep study has been reviewed by a board certified sleep medicine physician.
[2025-03-05 13:57] VITALS: BMI 22.9
== END 2025-02-10 07:03 | disposition home or self-care (01) ==
LOC: ANHCSM 08:27
PROVIDERS: Visit Provider Physician Assistant
DX: G47.61 Periodic limb movement disorder (principal); G47.34 Idiopathic sleep related nonobstructive alveolar hypoventilation; G47.10 Hypersomnia, unspecified
CPT/HCPCS: 95810